=== PATIENT | female | born 1950 | race Caucasian/White ===

== ENCOUNTER 2016-04-16 10:21 | Day surgery (SDC) | payer BC ==
[~2016-04-16] VITALS: Ht 154.9 cm; Wt 73.0 kg
[~2016-04-16 10:21] MED LIST: ASCORBIC ACID500 M3 PO; CALTRATE 600 +1 EAC1 PO; HYDROCHLOROTHIA25 MG PO; LIPITOR10 MG PO; METAXALONE400 MG PO; MULTIPLE VITAM1 EAC4 PO; NAPROSYN250 MG PO; PROTONIX40 MG PO; SKELAXIN800 MG PO; TYLENOL EXTRA500 MG PO; VITAMIN B-6100 MG PO; VITAMIN D31000 UNIT PO
== END 2016-04-16 12:45 | disposition home or self-care (01) ==
LOC: PAIN 10:21 → SDC 11:00 → PAIN 12:45
DX: M47.814 Spondylosis without myelopathy or radiculopathy, thoracic region (principal); F41.9 Anxiety disorder, unspecified; M12.88 Other specific arthropathies, not elsewhere classified, other specified site; M54.6 Pain in thoracic spine; I10 Essential (primary) hypertension; E78.5 Hyperlipidemia, unspecified; E66.9 Obesity, unspecified; Z68.31 Body mass index [BMI] 31.0-31.9, adult; R73.03 Prediabetes; Z88.6 Allergy status to analgesic agent
CPT/HCPCS: J1030; J2250; J3010; S0020

== ENCOUNTER 2016-06-20 11:48 | Day surgery (SDC) | payer BC ==
[~2016-06-20] VITALS: Ht 154.9 cm; Wt 72.6 kg
== END 2016-06-20 14:24 | disposition home or self-care (01) ==
LOC: PAIN 11:48
DX: M47.814 Spondylosis without myelopathy or radiculopathy, thoracic region (principal); F41.9 Anxiety disorder, unspecified; I87.8 Other specified disorders of veins; E78.5 Hyperlipidemia, unspecified; I10 Essential (primary) hypertension; Z88.6 Allergy status to analgesic agent
CPT/HCPCS: J1030; J2250; J3010; S0020

== ENCOUNTER 2016-07-14 19:46 | Emergency (ER) | payer OTHER ==
[~2016-07-14] VITALS: Ht 154.9 cm; Wt 74.1 kg
[2016-07-14 20:32] LABS: HEMATOCRIT 41.4 % (36.0-46.0); MCHC 33.6 G/DL (30.0-36.0); MCV 92.4 FL (83-99); MEAN PLAT.VOLUME 9.2 uM^3 (9.5-12.4); PLATELET COUNT 217 K/uL (156-360); RBC DIS.WIDTH-CV 12.7 % (11.8-14.6); RBC DIS.WIDTH-SD 43.3 % (39-53); RED BLOOD COUNT 4.48 M/uL (3.80-5.20); WHITE BLOOD COUNT 7.2 K/uL (4.1-10.2)
[2016-07-14 20:49] LABS: CHLORIDE 100 mEq/L (99-109); POTASSIUM 3.4 mEq/L (3.7-5.4); SODIUM 136 mEq/L (136-147)
[2016-07-14 20:51] LABS: GLUCOSE 112 mg/dL (70-99)
[2016-07-14 20:52] LABS: ANION GAP 10 MEQ/L (2-14)
[2016-07-14 20:53] LABS: TOTAL BILIRUBIN 0.4 mg/dL (0.0-1.0)
[2016-07-14 20:54] LABS: ALKALINE PHOSPHATASE 78 IU/L (3-129)
[2016-07-14 20:55] LABS: GFR ESTIMATE (CALCULATED) > 59 mL/min/
[2016-07-14 20:56] LABS: UREA NITROGEN (BUN) 16 mg/dL (9-23)
[2016-07-14 20:58] LABS: LIPASE 15 U/L (1.0-51.0)
[2016-07-15 00:05] VITALS: BP 118/83
== END 2016-07-15 00:33 | disposition home or self-care (01) ==
LOC: EME 19:46
PROVIDERS: Physician Assistant
DX: R51 Headache (principal); I10 Essential (primary) hypertension; E78.5 Hyperlipidemia, unspecified
CPT/HCPCS: 70450; 80053; 83690; 85027; 99281; 99284; J1885; J2270; J2765; J7040

== ENCOUNTER 2016-07-23 10:17 | Day surgery (SDC) | payer OTHER ==
[~2016-07-23] VITALS: Ht 154.9 cm; Wt 73.0 kg
[~2016-07-23 10:17] MED LIST changes: +KLOR-CON 88 MEQ PO; +ULTRAM50 MG PO
== END 2016-07-23 12:09 | disposition home or self-care (01) ==
LOC: PAIN 10:17 → SDC 11:00 → PAIN 12:09
PROC: 01583ZZ Destruction of Thoracic Nerve, Percutaneous Approach (ICD-10-PCS; principal; 2016-07-23)
DX: M47.814 Spondylosis without myelopathy or radiculopathy, thoracic region (principal); F41.9 Anxiety disorder, unspecified; M12.88 Other specific arthropathies, not elsewhere classified, other specified site; I10 Essential (primary) hypertension; E78.5 Hyperlipidemia, unspecified; E66.9 Obesity, unspecified; Z68.30 Body mass index [BMI] 30.0-30.9, adult; R73.03 Prediabetes; M79.1 Myalgia; M54.6 Pain in thoracic spine; Z88.6 Allergy status to analgesic agent
CPT/HCPCS: J1030; J2250; J3010; S0020

== ENCOUNTER 2016-07-30 06:52 | Day surgery (SDC) | payer OTHER ==
[~2016-07-30] VITALS: Ht 154.9 cm; Wt 73.0 kg
== END 2016-07-30 09:12 | disposition home or self-care (01) ==
LOC: PAIN 06:52 → SDC 07:30 → PAIN 07:30
DX: M51.34 Other intervertebral disc degeneration, thoracic region (principal); M47.814 Spondylosis without myelopathy or radiculopathy, thoracic region; I10 Essential (primary) hypertension; E03.9 Hypothyroidism, unspecified; I73.9 Peripheral vascular disease, unspecified; E78.5 Hyperlipidemia, unspecified; E66.9 Obesity, unspecified; Z68.30 Body mass index [BMI] 30.0-30.9, adult; R73.03 Prediabetes; E04.1 Nontoxic single thyroid nodule
CPT/HCPCS: J1030; J2250; J3010; S0020

== ENCOUNTER 2016-08-12 18:24 | Emergency (ER) | payer OTHER ==
[~2016-08-12] VITALS: Ht 154.9 cm; Wt 71.9 kg
[2016-08-12 21:26] VITALS: BP 121/71
== END 2016-08-12 21:26 | disposition home or self-care (01) ==
LOC: EME 18:24
DX: R51 Headache (principal); Z98.890 Other specified postprocedural states; I10 Essential (primary) hypertension; E78.5 Hyperlipidemia, unspecified
CPT/HCPCS: 99281; 99285; J1100; J1885; J2765; J7030

== ENCOUNTER 2016-10-14 09:44 | Day surgery (SDC) | payer OTHER ==
[~2016-10-14] VITALS: Ht 154.9 cm; Wt 71.7 kg
[~2016-10-14 09:44] MED LIST changes: +GLUCOPHAGE500 MG PO; +NORCO 5/3251 TABLET PO; +ZESTRIL10 MG PO
[2016-10-14 10:20] LABS: POINT-OF-CARE METER ID UU13113694
== END 2016-10-14 11:20 | disposition home or self-care (01) ==
LOC: PAIN 09:44 → SDC 10:15 → PAIN 10:15
PROVIDERS: Anesthesiology Pain Medicine
DX: M47.24 Other spondylosis with radiculopathy, thoracic region (principal); M51.14 Intervertebral disc disorders with radiculopathy, thoracic region; E78.5 Hyperlipidemia, unspecified; I10 Essential (primary) hypertension; E03.9 Hypothyroidism, unspecified; E66.9 Obesity, unspecified; Z68.29 Body mass index [BMI] 29.0-29.9, adult; R73.03 Prediabetes; Z79.84 Long term (current) use of oral hypoglycemic drugs
CPT/HCPCS: 82948; J1030; J1100; J1885; J2250; J3010

== ENCOUNTER 2016-10-29 19:07 | Emergency (ER) | payer OTHER ==
[~2016-10-29] VITALS: Ht 154.9 cm; Wt 69.4 kg
[2016-10-29 22:11] VITALS: BP 185/112
== END 2016-10-29 22:11 | disposition home or self-care (01) ==
LOC: EME 19:07
DX: G43.909 Migraine, unspecified, not intractable, without status migrainosus (principal); S70.361A Insect bite (nonvenomous), right thigh, initial encounter; W57.XXXA Bitten or stung by nonvenomous insect and other nonvenomous arthropods, initial encounter; I10 Essential (primary) hypertension; E78.5 Hyperlipidemia, unspecified
CPT/HCPCS: 99281; 99284; J1885

== ENCOUNTER 2016-11-18 10:45 | Day surgery (SDC) | payer OTHER ==
[~2016-11-18] VITALS: Ht 154.9 cm; Wt 70.8 kg
[~2016-11-18 10:45] MED LIST changes: +IMITREX25 MG PO
[2016-11-18 11:20] LABS: POINT-OF-CARE METER ID UU13113694
== END 2016-11-18 12:20 | disposition home or self-care (01) ==
LOC: PAIN 10:45 → SDC 11:15 → PAIN 11:15
PROVIDERS: Anesthesiology Pain Medicine
PROC: 3E0S33Z Introduction of Anti-inflammatory into Epidural Space, Percutaneous Approach (ICD-10-PCS; principal; 2016-11-18)
DX: M47.24 Other spondylosis with radiculopathy, thoracic region (principal); M12.88 Other specific arthropathies, not elsewhere classified, other specified site; F41.9 Anxiety disorder, unspecified; M25.562 Pain in left knee; I73.9 Peripheral vascular disease, unspecified; E78.5 Hyperlipidemia, unspecified; I10 Essential (primary) hypertension; E66.9 Obesity, unspecified; R73.03 Prediabetes; Z79.84 Long term (current) use of oral hypoglycemic drugs; Z88.6 Allergy status to analgesic agent; Z86.19 Personal history of other infectious and parasitic diseases
CPT/HCPCS: 82948; J1030; J2250; J3010